=== PATIENT | male | born 1940 | race Caucasian/White ===

== ENCOUNTER 2017-03-19 15:23 | Inpatient (IN) | payer OTHER ==
[~2017-03-19] VITALS: Ht 175.3 cm; Wt 78.3 kg
[2017-03-19] MEDS ORDERED: ASPIRIN 81 MG TAB PO STA (15:43)
[2017-03-19] MEDS ORDERED: NITROGLYCERIN 2% 1 GM OINT PKT TD STA (15:43)
[2017-03-19] MEDS ORDERED: NITROGLYCERIN (SL) 0.4 MG TAB SL PRN (16:00)
--- NOTE | 2017-03-19 18:52 | RADRPT ---
PROCEDURE: XR Chest. CLINICAL INDICATION: Chest pain. TECHNIQUE: Single frontal view. COMPARISON: None. FINDINGS: There is left basilar mild atelectasis or pneumonia. The lungs are otherwise clear. The heart size is normal. There are sternal wires. There is no pleural effusion. There is no pneumothorax. IMPRESSION: 1. Mild left basilar atelectasis or pneumonia. 2. Previous median sternotomy. 3. Otherwise normal chest radiograph. RPTAT: QQ .Ced Rendon MD, MD Date Time Electronically viewed and signed by .Ced Rendon MD, MD on 03/19/2017 17:23 .R/
--- NOTE | 2017-03-19 19:23 | ERD ---
ER Documentation Chief Complaint Chief Complaint CHEST PAIN SINCE LAST NIGHT , NO SOB HPI Patient is a 77-year-old male with coronary disease, hypertension, and diabetes who presents with chest pain. The patient was sent by Dr. Portillo for admission. He needs a cardiac catheterization and was scheduled for one tomorrow however this chest pain started yesterday and therefore Dr. Portillo sent him to the emergency department. He said that yesterday he had chest pain all day. The pain comes and goes and he describes it as a "burning sensation" which lasts minutes at a time. ROS All systems reviewed and are negative except as per history of present illness. PMhx/Soc History of Surgery: Yes (CABG) Anesthesia Reaction: No Hx Neurological Disorder: No Hx Respiratory Disorders: No Hx Cardiac Disorders: Yes (HTN, HIGH CHOLESTEROL) Hx Psychiatric Problems: No Hx Miscellaneous Medical Probl: No Hx Alcohol Use: No Hx Substance Use: No Hx Tobacco Use: No Smoking Status: Current every day smoker FmHx Family History: coronary disease Physical Exam Vitals Vital Signs Date Time Temp Pulse Resp B/P Pulse Ox O2 Delivery O2 Flow Rate FiO2 03/19/17 15:25 98.2 69 18 197/96 98 Physical Exam Const: No acute distress Head: Atraumatic Eyes: Normal Conjunctiva ENT: Normal External Ears, Nose and Mouth. Neck: Full range of motion..~ No meningismus. Resp: Clear to auscultation bilaterally Cardio: Regular rate and rhythm, no murmurs Abd: Soft, non tender, non distended. Normal bowel sounds Skin: No petechiae or rashes Back: No midline or flank tenderness Ext: No cyanosis, or edema Neur: Awake and alert Psych: Normal Mood and Affect Result Diagram: 03/19/17 1615 Results 24 hrs Laboratory Tests Test 03/19/17 16:15 Sodium Level 143mmol/L Potassium Level 3.9mmol/L Chloride Level 105mmol/L Carbon Dioxide Level 26mmol/L Anion Gap 16 Blood Urea Nitrogen 14mg/dl Creatinine 0.82mg/dl Glucose Level 99mg/dl Calcium Level 9.1mg/dl Troponin I Pending Current Medications Medications (Trade) Dose Ordered Sig/Miriam Route PRN Reason Start Time Stop Time Status Last Admin Dose Admin Aspirin (Aspirin) 162 mg ONCE STAT PO 03/19/17 15:43 03/19/17 15:44 DC 03/19/17 15:49 Nitroglycerin (Nitroglycerin 2% Oint) 1 inch ONCE STAT TD 03/19/17 15:43 03/19/17 15:44 DC 03/19/17 15:49 Nitroglycerin (Nitroglycerin (Sl Tab) 0.4 Mg) 1 tab Q5M UP TO 3 DOSES PRN SL CHEST PAIN 03/19/17 16:00 Ondansetron HCl (Zofran Inj) 4 mg ER BRIDGE PRN IV NAUSEA AND/OR VOMITING 03/19/17 19:30 03/20/17 19:29 Acetaminophen (Tylenol Tab) 650 mg ER BRIDGE PRN PO MILD PAIN/FEVER 03/19/17 19:30 03/20/17 19:29 Procedures/MDM EKG #1 read by me: Rate/Rhythm: Regular rate and rhythm at a rate of 64 Intervals: Normal Impression: No evidence of ischemia or arrhythmia EKG #2 read by me: Rate/Rhythm: sinus bradycardia rate of 56 Intervals: Normal Impression: Bradycardia without ischemia PROCEDURE: XR Chest. CLINICAL INDICATION: Chest pain. TECHNIQUE: Single frontal view. COMPARISON: None. FINDINGS: There is left basilar mild atelectasis or pneumonia. The lungs are otherwise clear. The heart size is normal. There are sternal wires. There is no pleural effusion. There is no pneumothorax. IMPRESSION: 1. Mild left basilar atelectasis or pneumonia. 2. Previous median sternotomy. 3. Otherwise normal chest radiograph. RPTAT: QQ .Ced Rendon MD, MD Date Time Electronically viewed and signed by .Ced Rendon MD, MD on 03/19/2017 17:23 Laboratory studies are pending at this time given the downtime in the lab. Patient is a 77-year-old male with multiple cardiac risk factors who presents with chest pain. I am concerned for acute coronary syndrome and the patient will get a cardiac catheterization by Dr. Portillo. The patient was given aspirin and nitroglycerin. Dr. Portillo initially wanted the patient admitted to Dr. Macario who we have called however we have called and there is been no callback for over 1 hour and therefore per policy the patient will be admitted to the panel team. The patient has [employer] who was admitted to the panel team anyway. I spoke with Dr. Hurst for admission to a telemetry bed. I doubt pneumonia, pneumothorax, pulmonary embolism, or aortic dissection. Departure Diagnosis: Primary Impression: Chest pain Chest pain type: unspecified Qualified Code: R07.9 - Chest pain, unspecified type Condition: JACEY Watson MD Mar 19, 2017 19:23
[2017-03-19] MEDS ORDERED: ACETAMINOPHEN 325 MG TAB PO PRN (19:30)
[2017-03-19] MEDS ORDERED: ONDANSETRON 4 MG INJ IV PRN (19:30)
[2017-03-20] VITALS (17 sets, daily range): BP systolic 148–185; BP diastolic 64–88; PULSE 53–78; RESP 14–28; TEMP 98.3; Ht 175.3 cm; Wt 78.3 kg
--- NOTE | 2017-03-20 02:04 | CONS ---
DATE OF ADMISSION: 03/19/2017 DATE OF CONSULTATION: 03/19/2017 TYPE OF CONSULTATION: Cardiology. REFERRING PHYSICIAN: Dr. Ayala. REASON FOR CONSULTATION: Chest pain. CHIEF COMPLAINT: Chest pain. HISTORY OF PRESENT ILLNESS: Thank you for this referral. History obtained from the patient, arlyn yaneth review of the old chart. The patient also very well known to me from previous admissions to the hospital and outpatient workup. 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 The patient has had intermittent chest pain upon exertion mostly. He said he is able t o swim a little bit ____ swimming a little bit more than usual, he will get the chest pain and press ure, has to rest, it goes away. He has had a stress test which has showed abnormality and was sched uled to a undergo diagnostic angiography tomorrow; however, his pain got worse and finally came to e mergency room. The patient has been admitted for further workup. PAST MEDICAL HISTORY: History of coronary artery disease, status post coronary bypass graft many ye ars ago, status post PCI of his saphenous vein graft in 2015 using a bare metal stent, history of hy pertension, paroxysmal atrial fibrillation, dyslipidemia. PAST SURGICAL HISTORY: He has had a bypass surgery previously. He had a left heart catheterization , coronary angiography done and PCI of saphenous vein graft in 09/02/2015 at [facility]. A t that time, angiography showed the left main was 100% occluded, the RCA was 100% occluded. Ramus i ntermedius was 100% occluded with RENÉE 1 flow. MORATAYA to LAD was patent. Saphenous vein graft to OM was patent, saphenous vein graft to RCA had a 99% lesion which was successfully stented. Previously has had a bypass surgery 3 vessels. SOCIAL HISTORY: Does not smoke or drink. FAMILY HISTORY: No reported early coronary artery disease. MEDICATIONS AT HOME: 1. Digoxin 0.125 p.o. q.48 hours. 2. Losartan 50 mg daily. 3. Metformin 500 mg p.o. daily. 4. Eliquis 2.5 p.o. b.i.d. 5. Plavix 75 p.o. daily. 6. Sotalol 120 mg p.o. b.i.d. 7. Pravastatin 40 mg p.o. at bedtime. 8. Lorazepam 0.5 mg p.o. at bedtime p.r.n. REVIEW OF SYSTEMS: He denied all other except for above-mentioned. PHYSICAL EXAMINATION: VITAL SIGNS: Stable. Afebrile. Heart rate of 68, blood pressure of 112/68, respiration rate of 16 . HEENT: Normocephalic, atraumatic. No acute distress. Pupils are equal. CARDIOVASCULAR: Regular rate and rhythm, systolic murmur. PULMONARY: Anteriorly with no wheezes, no rhonchi. GASTROINTESTINAL: Soft, nontender. CHEST: Status post sternotomy. EXTREMITIES: With no significant lower extremity edema. NEUROLOGIC: Awake, alert, oriented x3. PSYCHIATRIC: Calm, pleasant. LABORATORY DATA: EKG was personally reviewed, showed normal sinus rhythm with nonspecific intravent ricular conduction delay. Nonspecific ST abnormalities. Review of the old chart showed that valdo ellis's stress test on 02/22/2016 showed ejection fraction of 70% with ____ reversible ischemia in the d iagonal site ramus intermedius area. Echocardiogram previously showed mild LVH with normal LV systo lic function. ASSESSMENT AND PLAN: 1. Acute coronary syndrome/unstable angina. 2. History of coronary artery disease status post history of coronary bypass graft. 3. History of percutaneous coronary intervention. 4. History of paroxysmal atrial fibrillation. 5. Dyslipidemia, stable on Pravastatin. 6. History of chronic angina. 7. Chronic kidney disease. 8. History of anxiety. RECOMMENDATIONS: 1. We will continue with the Plavix, digoxin, Losartan, Sotalol, Ranexa. 2. Pravastatin will be continued as well. 3. Lorazepam p.r.n. will be given as well. 4. We will place him on diabetic diet. 5. Lovenox will be given 1 shot today. 6. We will obtain labs including cardiac enzymes to rule out myocardial infarction. 7. Given his multiple risk factors and known abnormal stress test and now recurrent and worsening a nginal chest pain on medical therapy, we will plan for left heart catheterization, coronary angiogra phy, possible percutaneous coronary intervention including possible high risk PCI of chronic total o cclusion of the ramus intermedius. Risks, benefits and alternatives of the procedure discussed with the patient in detail. Risks included infection, vascular complication, bleeding complication, TN, stroke, arrhythmia, , renal failure, etc. discussed with the patient. The patient has consent ed to procedure. We will place the patient on Mucomyst as well for renal protection. IV fluid will be started tonight. Echocardiogram will be checked as well too. Plan for coronary angiography wit h possible PCI tomorrow morning. Thank you for this referral. We will continue to follow along with you. Dictated By: QUINCY JENKINS MD AV/IFEANYI Conf#: [id number] DID#: [id number] CC: DORCAS AYALA DO;*EndCC*
[2017-03-20] MEDS ORDERED: LORAZEPAM 0.5 MG TAB PO PRN ×3 (03:30→21:00)
[2017-03-20] MEDS ORDERED: GLUCAGON 1 MG INJ IM PRN (05:00)
[2017-03-20] MEDS ORDERED: GLUCOSE GEL 15 GRAM TUBE PO PRN ×2 (05:00)
[2017-03-20] MEDS ORDERED: DEXTROSE 50% 50 ML SYRINGE IV PRN ×2 (05:00)
[2017-03-20] MEDS ORDERED: GLUCOSE GEL 15 GRAM TUBE BUCCAL PRN (05:00)
[2017-03-20] MEDS ORDERED: APIX2.5T PO (05:52)
[2017-03-20] MEDS ORDERED: METF500T PO (05:52)
[2017-03-20] MEDS ORDERED: DIGO125T6 PO (05:52)
[2017-03-20] MEDS ORDERED: PRAV40TA76 PO (05:52)
[2017-03-20] MEDS ORDERED: LOSA50TA6 PO (05:52)
[2017-03-20] MEDS ORDERED: SOT120 PO (05:52)
[2017-03-20] MEDS ORDERED: LORA0.5T PO (05:52)
[2017-03-20] MEDS ORDERED: metFORMIN 500 MG TAB PO SCH (07:55)
[2017-03-20] MEDS ORDERED: INSULIN ASPART [NOVOLOG] 3 ML PEN SC SCH (07:55)
--- NOTE | 2017-03-20 08:04 | HP ---
Date/Time of Note Date/Time of Note DATE: 03/20/17 TIME: 07:58 Assessment/Plan VTE Prophylaxis VTE Prophylaxis Intervention: SCD's Lines/Catheters IV Catheter Type (from Nrsg): Mid Line Central line still needed: Yes Assessment/Plan Assessment/Plan ASSESSMENT 77-year-old male with history of CAD status post PCI with stent and history of CABG, hypertension, paroxysmal atrial fibrillation, dyslipidemia and angina who presented to the ER complaining of chest pain, currently awaiting her cardiac cath PLAN Continue telemetry monitoring Patient has already been seen by cardiology, follow-up recommendations. He will be kept n.p.o. for likely cardiac cath Continue his home medications adjustment as needed HPI/ROS Admit Date/Time Admit Date/Time Mar 19, 2017 at 19:10 Hx of Present Illness This is a 77-year-old male with history of CAD status post PCI with stent and history of CABG, hypertension, paroxysmal atrial fibrillation, dyslipidemia who presented to the ER complaining of chest pain. Pain is pressure-like, slightly left-sided with no radiation. Pain is worse with exertion. Patient was scheduled for outpatient cardiac cath this week, but due to progressively worsening chest pain, patient decided to come to the hospital for evaluation. He has already been seen by benefits sales consultant earlier today. When he presented to the ER, troponin was negative, EKG was no ST elevation or depression. Chest x-ray showed mild atelectasis versus pneumonia. He has a normal white count and has been afebrile. He did present was a BP of 197/96, which improved since. PMH/Family/Social Social History Smoking Status: Former smoker Exam/Review of Systems Vital Signs Vitals Vital Signs Date Time Temp Pulse Resp B/P Pulse Ox O2 Delivery O2 Flow Rate FiO2 03/20/17 07:22 97.7 53 18 167/77 97 03/20/17 00:25 Room Air Labs Result Diagram: 03/19/17 1600 03/19/17 1615 Medications Medications Current Medications Morphine Sulfate (morphine) 2 mg Q4H PRN IV PAIN; Start 03/20/17 at 04:00 Diagnostic Test (Pha) (Accu-Chek) 1 ea 02 XX ; Start 03/21/17 at 02:00 Miscellaneous Information 1 ea NOTE XX ; Start 03/20/17 at 05:00 Glucose (Glutose) 15 gm Q15M PRN PO DECREASED GLUCOSE; Start 03/20/17 at 05:00 Glucose (Glutose) 22.5 gm Q15M PRN PO DECREASED GLUCOSE; Start 03/20/17 at 05: 00 Dextrose (D50w Syringe) 25 ml Q15M PRN IV DECREASED GLUCOSE; Start 03/20/17 at 05:00 Dextrose (D50w Syringe) 50 ml Q15M PRN IV DECREASED GLUCOSE; Start 03/20/17 at 05:00 Glucagon (Glucagen) 1 mg Q15M PRN IM DECREASED GLUCOSE; Start 03/20/17 at 05:00 Glucose (Glutose) 15 gm Q15M PRN BUCCAL DECREASED GLUCOSE; Start 03/20/17 at 05 :00 Apixaban (Eliquis) 2.5 mg BID PO ; Start 03/20/17 at 09:00 Digoxin (Digoxin) 0.125 mg Q48H PO ; Start 03/20/17 at 13:00 Lorazepam (Ativan) 0.5 mg Q8 PRN PO ANXIETY; Start 03/20/17 at 06:00 Losartan Potassium (Cozaar) 50 mg DAILY PO ; Start 03/20/17 at 09:00 PARAMJIT MARTINEZ MD Mar 20, 2017 08:04
[2017-03-20] MEDS ORDERED: LOSARTAN 50 MG TAB PO SCH ×2 (09:00)
[2017-03-20] MEDS ORDERED: APIXABAN 5 MG TABLET PO SCH ×2 (09:00)
--- NOTE | 2017-03-20 09:07 | HP ---
DATE OF ADMISSION: 03/19/2017 CHIEF COMPLAINT: Chest pain. HISTORY OF PRESENT ILLNESS: This is a 77-year-old male with a past medical history of coronary phi ry disease status post CABG, history of hypertension, diabetes who presents to [facility] with chest pain. The patient states that he has been having increased shortness of breath a nd chest pain with activity. The patient went to see his primary mainspring former, Dr. Portillo, who jack mmended for the patient to come to the emergency room for cardiac catheterization. The patient, upo n arrival to the emergency room, had laboratory data drawn. The patient was given Ativan, Zofran an d aspirin in the emergency room and admitted to telemetry for further evaluation. Upon my evaluation of the patient at this time, he is currently stable. Denies any active nausea, v omiting, shortness of breath, no active chest pain. PAST MEDICAL HISTORY: As stated above, history of coronary artery disease, history of diabetes, his tory of hypertension, history of paroxysmal AFib, dyslipidemia. PAST SURGICAL HISTORY: Status post CABG, status post PCI. SOCIAL HISTORY: Does not drink, smoke or do drugs. FAMILY HISTORY: Noncontributory. MEDICATIONS: The patient's medications have been reviewed and reconciled. REVIEW OF SYSTEMS: A 14-point review of systems was conducted. Pertinent positives stated in HPI, otherwise negative. PHYSICAL EXAMINATION: VITAL SIGNS: Blood pressure is 120/70, respirations 16, pulse 62. HEENT: Head is normocephalic. Pupils are reactive to light. NECK: Supple. HEART: Regular rate. LUNGS: Show diminished breath sounds at base. ABDOMEN: Soft, nontender to palpation. No rebound or guarding. EXTREMITIES: Negative for clubbing, cyanosis, or edema. DERMATOLOGIC: No rashes. MUSCULOSKELETAL: No joint effusions. NEUROLOGIC: No focal deficits. LABORATORY DATA: Shows white count 5.3, hemoglobin 13.0, hematocrit 38.0, platelet count is 197. B MP within normal limits. Troponin is negative x1. Chest x-ray shows left mild basilar atelectasis. ASSESSMENT AND PLAN: This is a 77-year-old male who presents with: 1. Chest pain. The plan is to rule out acute coronary syndrome. Plan is to check serial troponins . Will follow up with [employer] former, Dr. Portillo, who is planning possible cardiac catheterization. Continue medical management with aspirin, Plavix, statin therapy. 2. History of coronary artery disease, status post coronary artery bypass graft and percutaneous co ronary intervention. Continue current medical management. 3. Paroxysmal atrial fibrillation. Currently in sinus rhythm. Continue medical management. Resum e anticoagulation. 4. Anxiety. Continue lorazepam. 5. Dyslipidemia. Continue statin therapy. 6. Diabetes. Continue Accu-Cheks, insulin sliding scale. 7. History of chronic kidney disease. Renal functions currently appears to be stable, continue to monitor closely. Will monitor for any signs of contrast associated nephropathy. 8. Mild anemia. Monitor hemoglobin and hematocrit levels venous. 9. Gastrointestinal and deep venous thrombosis prophylaxis. Continue proton pump inhibitor and Kathy monty. Please note I spent over 25 minutes face to face time with the patient. The patient is FULL CODE. Dictated By: DORCAS HAND/IFEANYI Conf#: [id number] DID#: [id number]
--- NOTE | 2017-03-20 09:07 | HP ---
DATE OF ADMISSION: 03/19/2017 CHIEF COMPLAINT: Chest pain. HISTORY OF PRESENT ILLNESS: This is a 77-year-old male with a past medical history of coronary phi ry disease status post CABG, history of hypertension, diabetes who presents to [facility] with chest pain. The patient states that he has been having increased shortness of breath a nd chest pain with activity. The patient went to see his primary straightening roll operator, Dr. Portillo, who jack mmended for the patient to come to the emergency room for cardiac catheterization. The patient, upo n arrival to the emergency room, had laboratory data drawn. The patient was given Ativan, Zofran an d aspirin in the emergency room and admitted to telemetry for further evaluation. Upon my evaluation of the patient at this time, he is currently stable. Denies any active nausea, v omiting, shortness of breath, no active chest pain. PAST MEDICAL HISTORY: As stated above, history of coronary artery disease, history of diabetes, his tory of hypertension, history of paroxysmal AFib, dyslipidemia. PAST SURGICAL HISTORY: Status post CABG, status post PCI. SOCIAL HISTORY: Does not drink, smoke or do drugs. FAMILY HISTORY: Noncontributory. MEDICATIONS: The patient's medications have been reviewed and reconciled. REVIEW OF SYSTEMS: A 14-point review of systems was conducted. Pertinent positives stated in HPI, otherwise negative. PHYSICAL EXAMINATION: VITAL SIGNS: Blood pressure is 120/70, respirations 16, pulse 62. HEENT: Head is normocephalic. Pupils are reactive to light. NECK: Supple. HEART: Regular rate. LUNGS: Show diminished breath sounds at base. ABDOMEN: Soft, nontender to palpation. No rebound or guarding. EXTREMITIES: Negative for clubbing, cyanosis, or edema. DERMATOLOGIC: No rashes. MUSCULOSKELETAL: No joint effusions. NEUROLOGIC: No focal deficits. LABORATORY DATA: Shows white count 5.3, hemoglobin 13.0, hematocrit 38.0, platelet count is 197. B MP within normal limits. Troponin is negative x1. Chest x-ray shows left mild basilar atelectasis. ASSESSMENT AND PLAN: This is a 77-year-old male who presents with: 1. Chest pain. The plan is to rule out acute coronary syndrome. Plan is to check serial troponins . Will follow up with straightening roll operator, Dr. Portillo, who is planning possible cardiac catheterization. Continue medical management with aspirin, Plavix, statin therapy. 2. History of coronary artery disease, status post coronary artery bypass graft and percutaneous co ronary intervention. Continue current medical management. 3. Paroxysmal atrial fibrillation. Currently in sinus rhythm. Continue medical management. Resum e anticoagulation. 4. Anxiety. Continue lorazepam. 5. Dyslipidemia. Continue statin therapy. 6. Diabetes. Continue Accu-Cheks, insulin sliding scale. 7. History of chronic kidney disease. Renal functions currently appears to be stable, continue to monitor closely. Will monitor for any signs of contrast associated nephropathy. 8. Mild anemia. Monitor hemoglobin and hematocrit levels venous. 9. Gastrointestinal and deep venous thrombosis prophylaxis. Continue proton pump inhibitor and Kathy monty. Please note I spent over 25 minutes face to face time with the patient. The patient is FULL CODE. Dictated By: DORCAS HAND/IFEANYI Conf#: [id number] DID#: [id number]
[2017-03-20] MEDS: LOSARTAN 50 MG TAB PO SCH ×2 (10:00→16:30)
[2017-03-20] MEDS: RANOLAZINE (SR) 500 MG TAB PO SCH ×2 (10:00→21:06)
[2017-03-20] MEDS: SOTALOL 80 MG TAB PO SCH ×2 (10:00→20:22)
[2017-03-20] MEDS ORDERED: ASPIRIN (EC) 81 MG TAB PO SCH (10:00)
[2017-03-20] MEDS: CLOPIDOGREL 75 MG TAB PO SCH (10:19)
[2017-03-20] MEDS: ACETYLCYSTEINE 600 MG CAP PO SCH ×2 (10:19→20:23)
[2017-03-20] MEDS ORDERED: NITROGLYCERIN (SL) 0.4 MG TAB SL PRN (10:30)
[2017-03-20] MEDS ORDERED: MIDAZOLAM 1 MG/ML 2 ML INJ ONE ×2 (11:11→13:03)
[2017-03-20] MEDS ORDERED: FENTAnyl 50 MCG/ML VIAL ONE ×2 (11:12→14:23)
[2017-03-20] MEDS ORDERED: NITROGLYCERIN (IC) 100 MCG/ML INJ ONE ×2 (11:12→11:50)
[2017-03-20] MEDS ORDERED: HEPARIN 1000 UNITS/NS (A-LINE) 2,000 ML ONE (11:49)
[2017-03-20] MEDS ORDERED: HEPARIN 1000 UNITS/ML 10 ML INJ ONE (11:49)
[2017-03-20] MEDS ORDERED: LIDOCAINE 1% (MDV) 20 ML INJ ONE (11:49)
[2017-03-20] MEDS ORDERED: IODIXANOL LOCM 100 ML BTL ONE ×4 (11:50→14:10)
[2017-03-20] MEDS ORDERED: VERAPAMIL 5 MG INJ ONE (11:50)
[2017-03-20] MEDS ORDERED: IOHEXOL 350MG/ML 50 ML BTL ONE (11:50)
--- NOTE | 2017-03-20 11:54 | PN ---
Date/Time of Note Date/Time of Note DATE: 03/20/17 TIME: 11:48 Assessment/Plan VTE Prophylaxis VTE Prophylaxis Intervention: other (Eliquis) Lines/Catheters IV Catheter Type (from Nrs): Mid Line Urinary Cath still in place: No Assessment/Plan Chief Complaint/Hosp Course ASSESSMENT/PLAN: 77-year-old male with history of CAD status post PCI with stent and history of CABG, hypertension, paroxysmal atrial fibrillation, dyslipidemia and angina who presented to the ER complaining of chest pain, currently awaiting her cardiac cath 1. CAD/cp -seen by cardiology team - continue telemetry monitoring, trend troponins - follow-up cardiac recommendations, and results from cardiac cath - Continue his home medications adjustment as needed 2. Paroxysmal atrial fibrillation -monitor 3. Anxiety - Continue lorazepam 4. Dyslipidemia. Continue statin therapy 5. Diabetes -continue insulin sliding scale 6. History of chronic kidney disease - Renal functions currently appears to be stable, although renal consult was obtained -continue to monitor closely Problems: Subjective 24 Hr Interval Summary Free Text/Dictation No acute events overnight, patient presently getting heart catheterization Exam/Review of Systems Vital Signs Vitals Vital Signs Date Time Temp Pulse Resp B/P Pulse Ox O2 Delivery O2 Flow Rate FiO2 03/20/17 08:00 Nasal Cannula 2.0 03/20/17 08:00 58 03/20/17 07:22 97.7 18 167/77 97 Exam PE: -Unable to be performed presently because patient is off the floor at procedure Results Result Diagram: 03/20/17 0715 03/19/17 1615 Results 24 hrs Laboratory Tests Test 03/19/17 16:00 03/19/17 16:15 03/20/17 01:24 03/20/17 07:15 White Blood Count 5.3 6.0 Red Blood Count 4.20 L 4.22 L Hemoglobin 13.0 L 12.8 L Hematocrit 38.0 L 38.2 L Mean Corpuscular Volume 90.5 90.5 Mean Corpuscular Hemoglobin 31.0 30.3 Mean Corpuscular Hemoglobin Concent 34.2 33.5 Red Cell Distribution Width 12.5 12.8 Platelet Count 197 220 Mean Platelet Volume 11.6 H 11.0 H Neutrophils % 45.3 57.0 Lymphocytes % 36.0 28.6 Monocytes % 13.3 H 9.8 Eosinophils % 4.5 3.6 Basophils % 0.7 0.8 Nucleated Red Blood Cells % 0.0 0.0 Neutrophils # 2.4 3.4 Lymphocytes # 1.9 1.7 Monocytes # 0.7 0.6 Eosinophils # 0.2 0.2 Basophils # 0.0 0.1 Nucleated Red Blood Cells # 0.0 0.0 Sodium Level 143 Potassium Level 3.9 Chloride Level 105 Carbon Dioxide Level 26 Anion Gap 16 Blood Urea Nitrogen 14 Creatinine 0.82 Glucose Level 99 Calcium Level 9.1 Troponin I < 0.012 < 0.012 < 0.012 Creatine Kinase 31 29 Creatine Kinase Index 2.2 2.2 Creatinine Kinase MB (Mass) 0.68 0.64 Hemoglobin A1c 5.9 Phosphorus Level 3.6 Magnesium Level 1.7 B-Type Natriuretic Peptide 312 Triglycerides Level 105 Cholesterol Level 135 LDL Cholesterol, Calculated 68 HDL Cholesterol 46 Cholesterol/HDL Ratio 2.9 Test 03/20/17 08:25 Bedside Glucose 116 Medications Medications Current Medications Morphine Sulfate (morphine) 2 mg Q4H PRN IV PAIN; Start 03/20/17 at 04:00 Diagnostic Test (Pha) (Accu-Chek) 1 ea 02 XX ; Start 03/21/17 at 02:00 Miscellaneous Information 1 ea NOTE XX ; Start 03/20/17 at 05:00 Glucose (Glutose) 15 gm Q15M PRN PO DECREASED GLUCOSE; Start 03/20/17 at 05:00 Glucose (Glutose) 22.5 gm Q15M PRN PO DECREASED GLUCOSE; Start 03/20/17 at 05: 00 Dextrose (D50w Syringe) 25 ml Q15M PRN IV DECREASED GLUCOSE; Start 03/20/17 at 05:00 Dextrose (D50w Syringe) 50 ml Q15M PRN IV DECREASED GLUCOSE; Start 03/20/17 at 05:00 Glucagon (Glucagen) 1 mg Q15M PRN IM DECREASED GLUCOSE; Start 03/20/17 at 05:00 Glucose (Glutose) 15 gm Q15M PRN BUCCAL DECREASED GLUCOSE; Start 03/20/17 at 05 :00 Digoxin (Digoxin) 0.125 mg Q48H PO ; Start 03/20/17 at 13:00 Lorazepam (Ativan) 0.5 mg Q8 PRN PO ANXIETY; Start 03/20/17 at 06:00 Losartan Potassium (Cozaar) 50 mg DAILY PO ; Start 03/20/17 at 09:00 Aspirin (Halfprin) 81 mg DAILY PO Last administered on 03/20/17 10:18; Admin Dose 81 MG; Start 03/20/17 at 10:00 Clopidogrel Bisulfate (plaVIX) 75 mg DAILY PO Last administered on 03/20/17 10 :19; Admin Dose 75 MG; Start 03/20/17 at 10:00 Sotalol HCl (Betapace) 120 mg BID PO ; Start 03/20/17 at 10:00 Atorvastatin Calcium (Lipitor) 20 mg DAILY@21 PO ; Start 03/20/17 at 21:00 Ranolazine (Ranexa) 500 mg BID PO ; Start 03/20/17 at 10:00 Lorazepam (Ativan) 0.5 mg QHS PRN PO INSOMNIA; Start 03/20/17 at 21:00 Losartan Potassium (Cozaar) 50 mg DAILY PO ; Start 03/20/17 at 10:00 Acetylcysteine (Nac) 600 mg Q12 PO Last administered on 03/20/17 10:19; Admin Dose 600 MG; Start 03/20/17 at 10:00 GENIE VERA 7, 2017 11:54
[2017-03-20] MEDS ORDERED: DIGOXIN 0.125 MG TAB PO SCH ×2 (13:00)
[2017-03-20] MEDS ORDERED: SOD CHLORIDE 0.9% 1,000 ML IV SCH (14:47)
--- NOTE | 2017-03-20 14:54 | OPR ---
Date/Time of Note Date/Time of Note DATE: 03/20/17 TIME: 14:50 Operative Report Procedure Date: Mar 20, 2017 Preoperative Diagnosis ACS. abnormal stress test, CAD Postoperative Diagnosis same Surgeon see signature line Airport Planner na Anesthesia Type: moderate sedation Estimated Blood Loss: minimal Transfusion none Specimen n/A Grafts/Implants none Complications none Procedure Description Veterinary Virus Serum Inspector: Quincy Portillo MD Indication: 77 year old with history of coronary artery disease status post bypass graft PCI's PAD paroxysmal atrial fibrillation with increasing anginal symptoms who has had abnormal stress test showing ischemia in the ramus/ diagonal area. Patient has been treated medically however he has failed medical therapy and was admitted with acute coronary syndrome/unstable angina. Procure performed: #1 left heart catheterization and selective right and left coronary angiogram. #2 selective graft angiography 3. very complicated but Successful PTCA and stenting of left main using a 4x20 mm synergy CAM ( from chronic total occlusion to no significant residual stenosis) 4. Very complicated by successful PTCA and stenting of the proximal ramus intermedius using a 2.5 x 12 mm Synergy drug-eluting stent ( from chronic total occlusion to no significant residual stenosis) 5. Complex PTCA of obtuse marginal 1 and distal left circumflex artery 4. Moderate sedation for more than 150 minutes Findings: 1. Left main: is long with 100% occlusion ---> 0% post PCI. 2. LAD: IS 100% OCCLUDED ostially. (previously known to have a patent MORATAYA --- > LAD) 3. Left circumflex artery: is nondominant. it has 100% ostial WALLPAPER CLEANER. After successful PCI it has 50% prox stenosis. OM 1 had 90% proximal stenosis (--->20 % post PTCA). distal LCX has 50% stenosis. SVG ---> OM1 is patent. there is retrograde flow back from OM1 into distal LCX but there was a 90% lesion at proximal OM1 which was successfully angioplastied. 4. RCA: is dominant. it is 100% proximally occluded. 5. RI: is small to moderate with 100% proximal stenosis ---> 0% post PCI 6. SVG ---> RCA: Patent 7. SVG ---> OM1 is patent. if fills distal LCX by retrograde filling but proximal OM had 90% stenosis which was angioplastied. 8. MORATAYA ---> LAD: previously was patent. 9. LVEDP 20: with no gradient across aortic valve . Procedure in detail: Written informed consent with obtained after risks benefits and alternatives discussed with the patient in detail. risks including but not limited to risk of infection vascular complications, bleeding complications, CO stroke arrhythmia renal failure at even were discussed with the patient in detail. Patient was brought into the cardiac dental laboratory technician apprentice and placed in supine position. Right and left groin area was prepped and draped in regular sterile fashion and then he was in anesthetized using 1% lidocaine. Right femoral artery was cannulated and using modified seldinger technique a 6 Polish sheath was placed in the right femoral artery. Right femoral angiogram was performed. JL4 catheter was advanced and engaged into the left main coronary artery and angiographic view was obtained. The JR4 catheter was advanced and engaged right coronary artery angiographic view was obtained. JR4 was advanced to engage the left ventricle hemodynamics as recorded by pullback aortic pressure was measured. JR4 catheter was advanced and engaged into the saphenous vein grafts angiographic view was obtained. At this time we decided to perform PCI of the left main and ramus intermediate artery. A precludes was applied and I changed the sheath to a long 40 cm 7 Polish sheath. I tried multiple different catheters and try to engage into the left main coronary artery however could not engage well into the left main coronary artery. Finally had to change his feet to a shortness 7 Polish sheath and used a JL 4 6 Polish guiding catheter which was advanced and engaged into the left main coronary artery. The platelet 200 wire was used and advanced across the lesion and placed distal LCX. Then I used a 1.25 balloon with difficulty advanced across the lesion multiple times inflated. I used another BMW wire which was advanced across into ramus intermedius. Multiple balloon inflation was done from 1.25 to 2.0, and 2.5 balloons. Then the PT wire was advanced redirected into the obtuse marginal 1. Proximal obtuse marginal 1 was also angioplastied using a 1.5 and 2 oh balloon to get better flow back into the distal left circumflex artery as well. I tried to to advance a 4.0 stent across the left main however could not advance across the lesion. The distal left main had to be angioplastied again. I used another carlos wire which was placed in the ramus intermedius. Multiple inflation was done. However with great difficulty was able to advance a 4 oh by 20 mm Synergy drug-eluting stent into the proximal left main coronary artery. Then another 2.5 x 12 mm Synergy drug-eluting stent was placed across the ramus intermediate and inflated at 12 osvaldo, after the carlos wire was removed. The balloon was withdrawn and overlapping area was postdilated up to 18 osvaldo. Final angiographic view was obtained which showed RENÉE-3 flow no evidence of dissection and no significant residual stenosis at the site of the stent. perclose was successfully deployed. Patient tolerated the procedure well with no complication. Patient was transferred to ICU in stable condition. Conclusions: Successful PTCA stenting of the left main and ramus intermediate artery from chronic total occlusion to no significant residual stenosis Successful angioplasty of the obtuse marginal 1 and distal left circumflex artery Recommendations: Aggressive medical therapy. aspirin indefinitely dual antiplatlet therapy with ASA/ Plavix ICU care overnight. QUINCY PORTILLO MD [facility] QUINCY PORTILLO MD Mar 20, 2017 14:54
--- NOTE | 2017-03-20 16:33 | RADRPT ---
Echocardiogram Report Patient Name: JAJA WADE Gender: Male Date: 1940 Study Date: 20-Mar-2017 Desk Sergeant: Ricky Mcgraw RDCS Location: [facility]– [place][note 2] Ref. Physician: QUINCY PORTILLO Quality: Good Procedures: Transthoracic echocardiogram with complete 2D, M-Mode, and doppler examination. Indications: Acute Coronary Syndrome. 2D/M Mode Doppler Measurement Value Normal Ranges Measurement Value Normal Ranges LVIDd 2D 4.4 3.5 - 5.6 cm AV Peak Jg 1.1 m/sec LVIDs 2D 3.0 2.1 - 4.1 cm AV Peak PG 5.0 mmHg LVPWd 2D 1.0 0.6 - 1.1 cm LVOT Peak Jg 1.0 m/sec IVSd 2D 1.1 0.6 - 1.1 cm LVOT Peak PG 3.9 mmHg AoR Diam 2D 3.2 2.0 - 3.7 cm MV E Peak Jg 0.8 m/sec EDV 2D 86.5 cm3 MV A Peak Jg 0.5 m/sec ESV 2D 28.1 cm3 MV E/A 1.5 LA Dimen 2D 3.9 2.3 - 4.0 cm MV Decel Time 160 msec MV Decel Sampson 5 MV E/A 1.5 TR Peak Jg 2.4 m/sec TR Peak PG 23.2 mmHg RVSP 33.0 mmHg Findings Left Ventricle: Normal left ventricular systolic function. Normal left ventricular cavity size. Mild concentric left ventricular hypertrophy. Ejection fraction is visually estimated at 60 %. Right Ventricle: Normal right ventricular size. Normal right ventricular systolic function. Left Atrium: The left atrium is normal in size. Right Atrium: The right atrium is normal in size. Mitral Valve: Mitral valve leaflets appear mildly thickened. Mild mitral annular calcification. Mild mitral valve regurgitation. Aortic Valve: No significant aortic stenosis or insufficiency. Aortic cusps appear mildly calcified. Tricuspid Valve: Normal appearance of the tricuspid valve. Estimated peak PA systolic pressure 33 mmHg. There is trace to mild tricuspid regurgitation. Pulmonic Valve: Pulmonic valve not well visualized. Pericardium: Normal pericardium with no significant pericardial effusion. Aorta: Normal aortic root. IVC: Normal size and normal respiratory collapse consistent with normal right atrial pressure. Conclusions 1.Normal left ventricular systolic function. Normal left ventricular cavity size. Mild concentric left ventricular hypertrophy. Ejection fraction is visually estimated at 60 %. 2.The left atrium is normal in size. 3.Mitral valve leaflets appear mildly thickened. Mild mitral annular calcification. Mild mitral valve regurgitation. 4.No significant aortic stenosis or insufficiency. Aortic cusps appear mildly calcified. 5.Normal appearance of the tricuspid valve. Estimated peak PA systolic pressure 33 mmHg. There is trace to mild tricuspid regurgitation. Electronically Signed By: Quincy Portillo 20-Mar-2017 16:32:02 -0800 Patient Name: JAJA WADE Study Date: 20-Mar-2017 [id number]
--- NOTE | 2017-03-20 16:33 | RADRPT ---
Echocardiogram Report Patient Name: JAJA WADE Gender: Male Date: 1940 Study Date: 20-Mar-2017 Site Leasing Agent: Ricky Mcgraw RDCS Location: [facility] Ref. Physician: QUINCY PORTILLO Quality: Good Procedures: Transthoracic echocardiogram with complete 2D, M-Mode, and doppler examination. Indications: Acute Coronary Syndrome. 2D/M Mode Doppler Measurement Value Normal Ranges Measurement Value Normal Ranges LVIDd 2D 4.4 3.5 - 5.6 cm AV Peak Jg 1.1 m/sec LVIDs 2D 3.0 2.1 - 4.1 cm AV Peak PG 5.0 mmHg LVPWd 2D 1.0 0.6 - 1.1 cm LVOT Peak Jg 1.0 m/sec IVSd 2D 1.1 0.6 - 1.1 cm LVOT Peak PG 3.9 mmHg AoR Diam 2D 3.2 2.0 - 3.7 cm MV E Peak Jg 0.8 m/sec EDV 2D 86.5 cm3 MV A Peak Jg 0.5 m/sec ESV 2D 28.1 cm3 MV E/A 1.5 LA Dimen 2D 3.9 2.3 - 4.0 cm MV Decel Time 160 msec MV Decel Faulk 5 MV E/A 1.5 TR Peak Jg 2.4 m/sec TR Peak PG 23.2 mmHg RVSP 33.0 mmHg Findings Left Ventricle: Normal left ventricular systolic function. Normal left ventricular cavity size. Mild concentric left ventricular hypertrophy. Ejection fraction is visually estimated at 60 %. Right Ventricle: Normal right ventricular size. Normal right ventricular systolic function. Left Atrium: The left atrium is normal in size. Right Atrium: The right atrium is normal in size. Mitral Valve: Mitral valve leaflets appear mildly thickened. Mild mitral annular calcification. Mild mitral valve regurgitation. Aortic Valve: No significant aortic stenosis or insufficiency. Aortic cusps appear mildly calcified. Tricuspid Valve: Normal appearance of the tricuspid valve. Estimated peak PA systolic pressure 33 mmHg. There is trace to mild tricuspid regurgitation. Pulmonic Valve: Pulmonic valve not well visualized. Pericardium: Normal pericardium with no significant pericardial effusion. Aorta: Normal aortic root. IVC: Normal size and normal respiratory collapse consistent with normal right atrial pressure. Conclusions 1.Normal left ventricular systolic function. Normal left ventricular cavity size. Mild concentric left ventricular hypertrophy. Ejection fraction is visually estimated at 60 %. 2.The left atrium is normal in size. 3.Mitral valve leaflets appear mildly thickened. Mild mitral annular calcification. Mild mitral valve regurgitation. 4.No significant aortic stenosis or insufficiency. Aortic cusps appear mildly calcified. 5.Normal appearance of the tricuspid valve. Estimated peak PA systolic pressure 33 mmHg. There is trace to mild tricuspid regurgitation. Electronically Signed By: Quincy Portillo 20-Mar-2017 16:32:02 -0800 Patient Name: JAJA WADE Study Date: 20-Mar-2017 [id number]
--- NOTE | 2017-03-20 16:33 | RADRPT ---
Echocardiogram Report Patient Name: JAJA WADE Gender: Male Date: 1940 Study Date: 20-Mar-2017 Cook Italian Style Food: Ricky Mcgraw RDCS Location: [facility] Ref. Physician: QUINCY PORTILLO Quality: Good Procedures: Transthoracic echocardiogram with complete 2D, M-Mode, and doppler examination. Indications: Acute Coronary Syndrome. 2D/M Mode Doppler Measurement Value Normal Ranges Measurement Value Normal Ranges LVIDd 2D 4.4 3.5 - 5.6 cm AV Peak Jg 1.1 m/sec LVIDs 2D 3.0 2.1 - 4.1 cm AV Peak PG 5.0 mmHg LVPWd 2D 1.0 0.6 - 1.1 cm LVOT Peak Jg 1.0 m/sec IVSd 2D 1.1 0.6 - 1.1 cm LVOT Peak PG 3.9 mmHg AoR Diam 2D 3.2 2.0 - 3.7 cm MV E Peak Jg 0.8 m/sec EDV 2D 86.5 cm3 MV A Peak Jg 0.5 m/sec ESV 2D 28.1 cm3 MV E/A 1.5 LA Dimen 2D 3.9 2.3 - 4.0 cm MV Decel Time 160 msec MV Decel [place] 5 MV E/A 1.5 TR Peak Jg 2.4 m/sec TR Peak PG 23.2 mmHg RVSP 33.0 mmHg Findings Left Ventricle: Normal left ventricular systolic function. Normal left ventricular cavity size. Mild concentric left ventricular hypertrophy. Ejection fraction is visually estimated at 60 %. Right Ventricle: Normal right ventricular size. Normal right ventricular systolic function. Left Atrium: The left atrium is normal in size. Right Atrium: The right atrium is normal in size. Mitral Valve: Mitral valve leaflets appear mildly thickened. Mild mitral annular calcification. Mild mitral valve regurgitation. Aortic Valve: No significant aortic stenosis or insufficiency. Aortic cusps appear mildly calcified. Tricuspid Valve: Normal appearance of the tricuspid valve. Estimated peak PA systolic pressure 33 mmHg. There is trace to mild tricuspid regurgitation. Pulmonic Valve: Pulmonic valve not well visualized. Pericardium: Normal pericardium with no significant pericardial effusion. Aorta: Normal aortic root. IVC: Normal size and normal respiratory collapse consistent with normal right atrial pressure. Conclusions 1.Normal left ventricular systolic function. Normal left ventricular cavity size. Mild concentric left ventricular hypertrophy. Ejection fraction is visually estimated at 60 %. 2.The left atrium is normal in size. 3.Mitral valve leaflets appear mildly thickened. Mild mitral annular calcification. Mild mitral valve regurgitation. 4.No significant aortic stenosis or insufficiency. Aortic cusps appear mildly calcified. 5.Normal appearance of the tricuspid valve. Estimated peak PA systolic pressure 33 mmHg. There is trace to mild tricuspid regurgitation. Electronically Signed By: Quincy Portillo 20-Mar-2017 16:32:02 -0800 Patient Name: JAJA WADE Study Date: 20-Mar-2017 [id number]
--- NOTE | 2017-03-20 17:24 | CONS ---
Date/Time of Note Date/Time of Note DATE: 03/20/17 TIME: 17:19 Consult Date/Type/Reason Admit Date/Time Mar 19, 2017 at 19:10 Initial Consult Date Type of Consultation: interventioanal cardiology Subjective S: Discussed with the staff multiple family members including sister. 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 He denies any more chest pain or pressure today. Denies any palpitation to me. He denies any groin pain at this point. Patient has been admitted to ICU for close monitoring. Rhythm strip was reviewed. Patient remained in sinus rhythm. No more episode of atrial fibrillation noted. O: General: no acute distress HEENT: NC/AT. pupils are equal. round. NECK: NO JVD. no stridor. CV: RRR. systolic murmur; no gallop or rubs. PULM: no wheezing or rhonchi. GI: SOFT, NT, ND, no rebound or guarding Extremity: trace B/L LE edema. no clubbing. neuro: awake and alert, OX3. Psych: calm and pleasant rectal: deferred : normal male vascular: R femoral: no bleeding or hematoma. no bruit Echo personally reviewed: 1. Normal left ventricular systolic function. Normal left ventricular cavity size. Mild concentric left ventricular hypertrophy. Ejection fraction is visually estimated at 60 %. 2. The left atrium is normal in size. 3. Mitral valve leaflets appear mildly thickened. Mild mitral annular calcification. Mild mitral valve regurgitation. 4. No significant aortic stenosis or insufficiency. Aortic cusps appear mildly calcified. 5. Normal appearance of the tricuspid valve. Estimated peak PA systolic pressure 33 mmHg. There is trace to mild tricuspid regurgitation. Objective Vital Signs Date Time Temp Pulse Resp B/P Pulse Ox O2 Delivery O2 Flow Rate FiO2 03/20/17 16:00 58 161/73 98 Nasal Cannula 03/20/17 15:30 17 03/20/17 15:15 98.0 03/20/17 08:00 2.0 Results/Medications Result Diagram: 03/20/17 0715 03/19/17 1615 Results 24 hrs Laboratory Tests Test 03/20/17 01:24 03/20/17 07:15 03/20/17 08:25 Creatine Kinase 31 29 Creatine Kinase Index 2.2 2.2 Creatinine Kinase MB (Mass) 0.68 0.64 Troponin I < 0.012 < 0.012 White Blood Count 6.0 Red Blood Count 4.22 L Hemoglobin 12.8 L Hematocrit 38.2 L Mean Corpuscular Volume 90.5 Mean Corpuscular Hemoglobin 30.3 Mean Corpuscular Hemoglobin Concent 33.5 Red Cell Distribution Width 12.8 Platelet Count 220 Mean Platelet Volume 11.0 H Neutrophils % 57.0 Lymphocytes % 28.6 Monocytes % 9.8 Eosinophils % 3.6 Basophils % 0.8 Nucleated Red Blood Cells % 0.0 Neutrophils # 3.4 Lymphocytes # 1.7 Monocytes # 0.6 Eosinophils # 0.2 Basophils # 0.1 Nucleated Red Blood Cells # 0.0 Hemoglobin A1c 5.9 Phosphorus Level 3.6 Magnesium Level 1.7 B-Type Natriuretic Peptide 312 Triglycerides Level 105 Cholesterol Level 135 LDL Cholesterol, Calculated 68 HDL Cholesterol 46 Cholesterol/HDL Ratio 2.9 Bedside Glucose 116 Medications Current Medications Morphine Sulfate (morphine) 2 mg Q4H PRN IV PAIN; Start 03/20/17 at 04:00 Miscellaneous Information 1 ea NOTE XX ; Start 03/20/17 at 05:00 Digoxin (Digoxin) 0.125 mg Q48H PO ; Start 03/20/17 at 13:00 Aspirin (Halfprin) 81 mg DAILY PO Last administered on 03/20/17 10:18; Admin Dose 81 MG; Start 03/20/17 at 10:00 Clopidogrel Bisulfate (plaVIX) 75 mg DAILY PO Last administered on 03/20/17 10 :19; Admin Dose 75 MG; Start 03/20/17 at 10:00 Sotalol HCl (Betapace) 120 mg BID PO ; Start 03/20/17 at 10:00 Atorvastatin Calcium (Lipitor) 20 mg DAILY@21 PO ; Start 03/20/17 at 21:00 Ranolazine (Ranexa) 500 mg BID PO ; Start 03/20/17 at 10:00 Lorazepam (Ativan) 0.5 mg QHS PRN PO INSOMNIA; Start 03/20/17 at 21:00 Losartan Potassium (Cozaar) 50 mg DAILY PO Last administered on 03/20/17 16:30 ; Admin Dose 50 MG; Start 03/20/17 at 10:00 Acetylcysteine (Nac) 600 mg Q12 PO Last administered on 03/20/17 10:19; Admin Dose 600 MG; Start 03/20/17 at 10:00 Miscellaneous Information Hold all Metformin ... ONCE XX ; Start 03/20/17 at 15: 00; Stop 03/22/17 at 14:59 Sodium Chloride (NS) 1,000 ml @ 100 mls/hr Q10H IV Last administered on 15:08; Admin Dose 100 MLS/HR; Start 03/20/17 at 14:47; Stop 03/21/17 at 00: 46 Assessment/Plan Chief Complaint/Hosp Course 1. ACS 2. 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 S/P Complex PCI LM, RI, and PTCA LCX/ OM 4. HTN 5. PAFIB 6. Dyslipidemia 7. HTN 8. Mild DM Recommendations: I will continue with her dual antiplatelet therapy with aspirin and Plavix for the next 1 month. After that we will switch to aspirin to Eliquis or Xarelto. I will continue with the rest of his cardiac care including sotalol statins. We will closely monitor him in the ICU overnight. We will check the labs again tomorrow for any signs of bleeding. Diabetic diet will be continued for now. Will hold off on metformin for the next 48 hours. Since his glucose has been overall stable we will discontinue the insulin sliding scale. Continue with ICU care overnight. More than 35 minutes of critical care time was spent in management and treatment of this patient excluding any procedures. QUINCY JENKINS MD [facility] Problems: QUINCY JENKINS MD Mar 20, 2017 17:24
[2017-03-20] MEDS ORDERED: ATORVASTATIN 20 MG TAB PO SCH ×2 (21:00)
[2017-03-20] MEDS: morphine 2 MG INJ IV PRN (22:56)
[2017-03-20] MEDS ORDERED: hydrALAzine 20 MG INJ IV PRN (23:30)
[2017-03-21] VITALS (24 sets, daily range): BP systolic 115–191; BP diastolic 54–94; PULSE 63–82; RESP 14–29
[2017-03-21] MEDS: morphine 2 MG INJ IV PRN (00:12)
[2017-03-21] MEDS ORDERED: ACCU-CHEK XX SCH (02:00)
[2017-03-21] MEDS ORDERED: POTASSIUM CHLORIDE (SR) 20 MEQ TAB PO STA (07:13)
--- NOTE | 2017-03-21 07:19 | CONS ---
Date/Time of Note Date/Time of Note DATE: 03/21/17 TIME: 07:14 Consult Date/Type/Reason Admit Date/Time Mar 19, 2017 at 19:10 Type of Consultation: interventioanal cardiology Subjective S: Discussed with the staff and rhythm was reviewed. pt remains in NSR No more episode of atrial fibrillation noted. 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 Denies any palpitation to me. He denies any groin pain at this point. Patient has been admitted to ICU for close monitoring. c.o nasal congestion no groin pain O: General: no acute distress HEENT: NC/AT. pupils are equal. round. NECK: NO JVD. no stridor. CV: RRR. systolic murmur; no gallop or rubs. PULM: no wheezing or rhonchi. GI: SOFT, NT, ND, no rebound or guarding Extremity: trace B/L LE edema. no clubbing. neuro: awake and alert, OX3. Psych: calm and pleasant rectal: deferred : normal male vascular: R femoral: no bleeding or hematoma. no bruit Echo personally reviewed: 1. Normal left ventricular systolic function. Normal left ventricular cavity size. Mild concentric left ventricular hypertrophy. Ejection fraction is visually estimated at 60 %. 2. The left atrium is normal in size. 3. Mitral valve leaflets appear mildly thickened. Mild mitral annular calcification. Mild mitral valve regurgitation. 4. No significant aortic stenosis or insufficiency. Aortic cusps appear mildly calcified. 5. Normal appearance of the tricuspid valve. Estimated peak PA systolic pressure 33 mmHg. There is trace to mild tricuspid regurgitation. Objective Vital Signs Date Time Temp Pulse Resp B/P Pulse Ox O2 Delivery O2 Flow Rate FiO2 03/21/17 05:00 78 17 132/70 99 03/21/17 03:00 98.9 03/20/17 20:33 Nasal Cannula 2.0 Intake and Output 03/20/17 03/20/17 03/21/17 15:00 23:00 07:00 Intake Total 300 ml 600 ml 200 ml Output Total 150 ml 500 ml 700 ml Balance 150 ml 100 ml -500 ml Results/Medications Result Diagram: 03/21/17 0500 03/21/17 0500 Results 24 hrs Laboratory Tests Test 03/20/17 07:15 03/20/17 08:25 03/21/17 05:00 White Blood Count 6.0 8.2 # Red Blood Count 4.22 L 3.99 L Hemoglobin 12.8 L 12.5 L Hematocrit 38.2 L 35.5 L Mean Corpuscular Volume 90.5 89.0 Mean Corpuscular Hemoglobin 30.3 31.3 Mean Corpuscular Hemoglobin Concent 33.5 35.2 Red Cell Distribution Width 12.8 12.4 Platelet Count 220 210 Mean Platelet Volume 11.0 H 10.4 Neutrophils % 57.0 78.5 H Lymphocytes % 28.6 10.9 L Monocytes % 9.8 9.4 Eosinophils % 3.6 0.5 Basophils % 0.8 0.5 Nucleated Red Blood Cells % 0.0 0.0 Neutrophils # 3.4 6.4 Lymphocytes # 1.7 0.9 Monocytes # 0.6 0.8 Eosinophils # 0.2 0.0 Basophils # 0.1 0.0 Nucleated Red Blood Cells # 0.0 0.0 Hemoglobin A1c 5.9 Phosphorus Level 3.6 3.3 Magnesium Level 1.7 1.6 L Creatine Kinase 29 130 Creatine Kinase Index 2.2 Creatinine Kinase MB (Mass) 0.64 Troponin I < 0.012 B-Type Natriuretic Peptide 312 779 H Triglycerides Level 105 85 Cholesterol Level 135 112 LDL Cholesterol, Calculated 68 58 HDL Cholesterol 46 37 Cholesterol/HDL Ratio 2.9 3.0 Bedside Glucose 116 Sodium Level 138 Potassium Level 3.7 Chloride Level 104 Carbon Dioxide Level 27 Anion Gap 11 Blood Urea Nitrogen 12 Creatinine 0.74 Glucose Level 133 Calcium Level 9.0 Total Bilirubin 1.3 Direct Bilirubin 0.00 Indirect Bilirubin 1.3 H Aspartate Amino Transf (AST/SGOT) 39 Alanine Aminotransferase (ALT/SGPT) 33 Alkaline Phosphatase 43 Total Protein 6.7 Albumin 3.7 Globulin 3.00 Albumin/Globulin Ratio 1.23 Thyroid Stimulating Hormone (TSH) 0.398 L Free Thyroxine 1.20 Digoxin Level 0.5 L Medications Current Medications Morphine Sulfate (morphine) 2 mg Q4H PRN IV PAIN Last administered on t 00:12; Admin Dose 2 MG; Start 03/20/17 at 04:00 Miscellaneous Information 1 ea NOTE XX ; Start 03/20/17 at 05:00 Digoxin (Digoxin) 0.125 mg Q48H PO ; Start 03/20/17 at 13:00 Aspirin (Halfprin) 81 mg DAILY PO Last administered on 03/20/17 10:18; Admin Dose 81 MG; Start 03/20/17 at 10:00 Clopidogrel Bisulfate (plaVIX) 75 mg DAILY PO Last administered on 03/20/17 10 :19; Admin Dose 75 MG; Start 03/20/17 at 10:00 Sotalol HCl (Betapace) 120 mg BID PO Last administered on 03/20/17 20:22; Admin Dose 120 MG; Start 03/20/17 at 10:00 Atorvastatin Calcium (Lipitor) 20 mg DAILY@21 PO Last administered on 20:23; Admin Dose 20 MG; Start 03/20/17 at 21:00 Ranolazine (Ranexa) 500 mg BID PO Last administered on 03/20/17 21:06; Admin Dose 500 MG; Start 03/20/17 at 10:00 Lorazepam (Ativan) 0.5 mg QHS PRN PO INSOMNIA Last administered on 03/20/17 21 :06; Admin Dose 0.5 MG; Start 03/20/17 at 21:00 Losartan Potassium (Cozaar) 50 mg DAILY PO Last administered on 03/20/17 16:30 ; Admin Dose 50 MG; Start 03/20/17 at 10:00 Acetylcysteine (Nac) 600 mg Q12 PO Last administered on 03/20/17 20:23; Admin Dose 600 MG; Start 03/20/17 at 10:00 Miscellaneous Information (* Miscellaneous Pharmacy Order) Hold all Metformin ... ONCE XX ; Start 03/20/17 at 15:00; Stop 03/22/17 at 14:59 Hydralazine HCl (Apresoline) 10 mg Q4H PRN IV ELEVATED SYSTOLIC BP Last administered on 03/21/17 00:12; Admin Dose 10 MG; Start 03/20/17 at 23:30 Assessment/Plan Chief Complaint/Hosp Course 1. ACS 2. 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 S/P Complex PCI LM, RI, and PTCA LCX/ OM 4. HTN 5. PAFIB 6. Dyslipidemia 7. HTN 8. Mild DM 9. Hypo Mg, hypo K Recommendations: I will continue with her dual antiplatelet therapy with aspirin and Plavix for the next 1 month. After that we will switch to aspirin to Eliquis or Xarelto. I will continue with the rest of his cardiac care including sotalol statins. We will closely monitor him in the ICU overnight. We will check the labs again tomorrow for any signs of bleeding. Diabetic diet will be continued for now. Will hold off on metformin for the next 48 hours. replace Mg and K. dc home today QUINCY JENKINS MD LOCATED WITHIN [facility] Problems: QUINCY JENKINS MD Mar 21, 2017 07:19
[2017-03-21] MEDS ORDERED: ASPI325T32 PO (07:26)
[2017-03-21] MEDS ORDERED: FLUTICASONE 0.05% 16 GM NAS SPRAY NASAL ONE (08:00)
--- NOTE | 2017-03-21 08:28 | PN ---
DATE: 03/21/2017 SUBJECTIVE: The patient is stable. The patient underwent cardiac catheterization yesterday with PC I of the left main artery and left circumflex artery. The patient was transferred to intensive care unit is currently stable without any complications. OBJECTIVE: VITAL SIGNS: Blood pressure is 132/70, respirations 17, pulse 78, temperature 98.9. HEENT: Head is normocephalic. NECK: Supple. HEART: Regular rate. LUNGS: Show diminished breath sounds at base. ABDOMEN: Soft, nontender to palpation without rebound or guarding. EXTREMITIES: Negative for clubbing, cyanosis, no edema. DERMATOLOGIC: No rashes. MUSCULOSKELETAL: No joint effusions. NEUROLOGIC: No focal deficits. LABORATORY DATA: Shows a BMP within normal limits, magnesium 1.6, white count 8.2, hemoglobin 12.5, hematocrit 35.5, platelet count is 210. ASSESSMENT AND PLAN: 1. Coronary artery disease. The patient is status post PCI to the left circumflex left main. Cont inue medical management and follow up with cardiology. 2. History of coronary artery disease, status post coronary artery bypass graft. Continue medical management. 3. Paroxysmal atrial fibrillation, patient is currently in sinus rhythm. Continue to monitor. 4. Hypomagnesemia, replete with magnesium sulfate. 5. Anxiety disorder. Continue lorazepam. 6. Dyslipidemia. Continue statin therapy. 7. Diabetes. Continue Accu-Cheks, insulin sliding scale. 8. History of chronic kidney disease. Renal functions stable, no evidence of contrast-associated n ephropathy. Continue to monitor. 9. Anemia. Monitor any change in levels. 10. Gastrointestinal and deep venous thrombosis prophylaxis. Dictated By: DORCAS HAND/IFEANYI Conf#: [id number] DID#: [id number]
[2017-03-21] MEDS: SOTALOL 80 MG TAB PO SCH (08:34)
[2017-03-21] MEDS: RANOLAZINE (SR) 500 MG TAB PO SCH (08:34)
[2017-03-21] MEDS: ACETYLCYSTEINE 600 MG CAP PO SCH (08:34)
[2017-03-21] MEDS: CLOPIDOGREL 75 MG TAB PO SCH (08:34)
[2017-03-21] MEDS: LOSARTAN 50 MG TAB PO SCH (08:35)
[2017-03-21] MEDS ORDERED: MAGNESIUM SULFATE 3 GM in DEXTROSE 5% 100 ML IVPB ONE (09:00)
[2017-03-21] MEDS ORDERED: ASPIRIN (EC) 325 MG TAB PO SCH (09:00)
--- NOTE | 2017-03-21 09:44 | PDOCDIS ---
Discharge Instructions CONDITION Patient Condition: Stable HOME CARE INSTRUCTIONS: Special Diet: cardiac dietYour diet recommendation is: 2 GRAM SODIUM, LOW FAT , LOW CHOLESTEROL DIET. ACTIVITY: Activity Restrictions: Slowly Increase Activity FOLLOW UP/APPOINTMENTS Follow-up Plan Please take your medications as prescribed. Please follow-up with her doctor in the clinic in the next 1-2 weeks. Remember to not take your metformin for the next 2 days, then you can resume it regularly after that. GENIE VERA Mar 21, 2017 09:44
--- NOTE | 2017-03-21 10:09 | DS ---
DATE OF ADMISSION: 03/19/2017 DATE OF DISCHARGE: 03/21/2017 HOSPITAL COURSE: The patient came in with chest pain. He has a prior history of bypass surgery in the past, coronary artery disease and also stent placement in the past. He was admitted, seen in the telemetry floor. Seen by cardiology team. He underwent a left heart catheterization. He had successful stenting of his left main artery as well as of the proximal ramus intermedius, and also angioplasty of the circumflex and obtuse marginal arteries. The patient tolerated the procedure well. He stayed 1 night in the intensive care unit. He had no signs of any bleeding. His heart rate remained stable. He was able to ambulate and tolerate a p.o. diet. He had some low magnesium which was replaced. Then after that is performed he has been cleared by Cardiology team to be discharged home today in improved condition. DISCHARGE MEDICATIONS: He will be sent home with aspirin 325 mg daily; Plavix 75 mg daily; digoxin 0.125 mg every 48 hours; Ativan 0.5 mg p.o. every 8 hours p.r.n.; losartan 50 mg daily; metformin 500 mg p.o. b.i.d. to be resumed 2 days after discharge; Pravastatin 40 mg q.h.s.; sotalol 125 mg b.i.d. FOLLOWUP: He will need to follow up with Cardiology and primary care doctors in the clinic in the next 1-2 weeks. FINAL DIAGNOSES: 1. Chest pain. Ruled out for acute coronary syndrome but status post left heart catheterization with stenting of left main, ramus and angioplasty of circumflex and obtuse marginal arteries. 2. History of coronary artery bypass graft in the past. 3. History of coronary artery disease with stent placement in the past. 4. Essential hypertension. 5. Paroxysmal atrial fibrillation. 6. High cholesterol. 7. Type 2 diabetes. 8. Low electrolytes, repleted. TIME SPENT: Time to discharge the patient, 50 minutes. Dictated By: Ryder Anna MD /carlton/briana /Document#: [id number]
--- NOTE | 2017-03-21 15:44 | RADRPT ---
Vent Rate: 56 bpm RR Interval: 0 msec [place] Interval: 182 msec QRS Duration: 70 msec QT Interval: 432 msec QTC Interval: 416 msec P-R-T [place]: 70 - 69 - -11 degrees Sinus bradycardia Nonspecific ST and T wave abnormality Abnormal ECG Electronically Signed By: Rito Harrell [id number]
--- NOTE | 2017-03-21 15:44 | RADRPT ---
Vent Rate: 56 bpm RR Interval: 0 msec [place] Interval: 182 msec QRS Duration: 70 msec QT Interval: 432 msec QTC Interval: 416 msec P-R-T [place]: 70 - 69 - -11 degrees Sinus bradycardia Nonspecific ST and T wave abnormality Abnormal ECG Electronically Signed By: Rito Harrell [id number]
--- NOTE | 2017-03-21 15:44 | RADRPT ---
Vent Rate: 56 bpm RR Interval: 0 msec [place] Interval: 182 msec QRS Duration: 70 msec QT Interval: 432 msec QTC Interval: 416 msec P-R-T [place]: 70 - 69 - -11 degrees Sinus bradycardia Nonspecific ST and T wave abnormality Abnormal ECG Electronically Signed By: Rito Harrell [id number]
== END 2017-03-21 14:25 | disposition home or self-care (01) | DRG 247 ==
LOC: E/R 15:23 → TEL 19:10 → ICU 03-20 15:00
PROVIDERS: ADMIT Internal Medicine; ATTEND Internal Medicine
PROC: B213YZZ Fluoroscopy of Multiple Coronary Artery Bypass Grafts using Other Contrast (ICD-10-PCS; 2017-03-20)
PROC: B211YZZ Fluoroscopy of Multiple Coronary Arteries using Other Contrast (ICD-10-PCS; 2017-03-20)
PROC: 027135Z Dilation of Coronary Artery, Two Arteries with Two Drug-eluting Intraluminal Devices, Percutaneous Approach (ICD-10-PCS; principal; 2017-03-20 11:00)
PROC: 4A023N7 Measurement of Cardiac Sampling and Pressure, Left Heart, Percutaneous Approach (ICD-10-PCS; 2017-03-20 11:00)
DX: I25.118 Atherosclerotic heart disease of native coronary artery with other forms of angina pectoris (principal); E11.22 Type 2 diabetes mellitus with diabetic chronic kidney disease; I25.82 Chronic total occlusion of coronary artery; I48.0 Paroxysmal atrial fibrillation; D64.9 Anemia, unspecified; Z95.5 Presence of coronary angioplasty implant and graft; E78.5 Hyperlipidemia, unspecified; F41.9 Anxiety disorder, unspecified; Z95.1 Presence of aortocoronary bypass graft; I12.9 Hypertensive chronic kidney disease with stage 1 through stage 4 chronic kidney disease, or unspecified chronic kidney disease; N18.9 Chronic kidney disease, unspecified; E83.42 Hypomagnesemia; E87.6 Hypokalemia
CPT/HCPCS: 36415; 71010; 80048; 80053; 80061; 80162; 82550; 82553; 82962; 83036; 83735; 83880; 84100; 84439; 84443; 84484; 85025; 87081; 93005; 93306; 93458; C1725; C1760; C1874; C1887; C1894; C9600; J0360; J1644; J1815; J2250; J2270; J3010; J3475; J7030; Q9967